=== PATIENT | female | born 1965 | race African-American/Black ===

== ENCOUNTER 2018-10-19 18:26 | Emergency (ER) | payer BC, OTHER ==
[~2018-10-19] VITALS: Ht 167.6 cm; Wt 105.0 kg
[2018-10-19] MEDS ORDERED: IOHEXOL-350 100 ML BOTTLE ONE (19:00)
[2018-10-19] MEDS ORDERED: ALTEPLASE 100MG/VIAL IV STA (19:35)
[2018-10-19] MEDS ORDERED: ALTEPLASE IV STA (19:35)
[2018-10-19] MEDS ORDERED: ALTEPLASE 100MG/VIAL IV ONE (20:00)
[2018-10-19 20:16] LABS: CHLORIDE 106 mEq/L (98-107); HEMATOCRIT. 41.7 % (36.0-48.0); HEMOGLOBIN. 13.8 g/dL (12.0-16.0); MEAN CORPUSCULAR HEMOGLOBIN 29.2 pg (28.0-32.0); MEAN CORPUSCULAR VOLUME 88.1 fL (81.0-99.0); RED BLOOD CELL COUNT 4.74 mill/uL (4.2-5.4); RED CELL DISTRIBUTION WIDTH 16.5 % (11.6-14.6)
[2018-10-19 20:20] LABS: ETHANOL BLOOD < 10 mg/dL
[2018-10-19 20:24] LABS: LDL CHOLESTEROL 109 mg/dL (5-100)
[2018-10-19 20:25] LABS: CREATINE KINASE 102 IU/L (26-192)
[2018-10-19] MEDS ORDERED: ALTEPLASE 81 MG in CONTAINER,EMPTY 1 BAG IV ONE (20:30)
[2018-10-19 20:39] LABS: MEAN PLATELET VOLUME 9.3 fl (7.4-10.4); PLATELET 222 x1000/uL (130-400)
[2018-10-19 20:42] LABS: HCG SCREEN NEGATIVE
[2018-10-19 20:42] LABS: PLATELET ESTIMATE NORMAL
[2018-10-19 20:47] VITALS: BP 142/83
[2018-10-19] MEDS ORDERED: *NO ASPIRIN X 24 HOURS XX SCH (21:15)
== END 2018-10-19 21:13 | disposition short-term general hospital (02) ==
LOC: ER 18:26 → CANBEDREQ 22:10
DX: I63.9 Cerebral infarction, unspecified (principal)
CPT/HCPCS: 36415; 37195; 70450; 70496; 70498; 71045; 80053; 80320; 82550; 82962; 83690; 83721; 83880; 84484; 84703; 85025; 85610; 93005; 99285; J2997; Q9967; J7060; G0480